=== PATIENT | female | born 1995 | race African-American/Black ===

== ENCOUNTER 2019-11-24 18:23 | Emergency (ER) | payer OTHER ==
[~2019-11-24] VITALS: Ht 157.5 cm; Wt 100.0 kg
[2019-11-24 19:07] VITALS: BP 137/75
[2019-11-24 19:53] LABS: BILIRUBIN,URINE NEGATIVE (NEG); CLARITY,URINE CLEAR; COLOR,URINE YELLOW; NITRITE,URINE NEGATIVE (NEG); PROTEIN,URINE NEGATIVE (NEG-TRACE)
--- NOTE | 2019-11-24 19:55 | PHYS DOC ---
Past Medical History Past Medical History: No Pertinent History Past Surgical History: Other Additional Past Surgical Histo: right knee Smoking Status: Never Smoker Alcohol Use: None Adult General Chief Complaint Chief Complaint: VAGINAL BLEEDING HPI HPI Patient is a 24 year old female who presents with 2 months . [place]. Patient states she does have a OB appointment with a Dr. Oconnor in [place] on . She stated that yesterday she began having vaginal bleeding and has gone through 2 pads today. Patient states she has slight cramping in her lower abdomen. Patient states her pain is a 3 out of 10. Review of Systems Review of Systems GI: intermittent cramping abdominal pain, denies nausea, vomiting, bloody stools or diarrhea [] : Vaginal bleeding. Denies dysuria or hematuria [] All other systems were reviewed and found to be within normal limits, except as documented in this note. Allergies Allergies Allergies Coded Allergies Type Severity Reaction Last Updated Verified No Known Drug Allergies 11/24/19 No Physical Exam Physical Exam Constitutional: Well developed, well nourished, no acute distress, non-toxic appearance. [] HENT: Normocephalic, atraumatic, bilateral external ears normal, oropharynx moist, no oral exudates, nose normal. [] Eyes: PERRLA, EOMI, conjunctiva normal, no discharge. [] Neck: Normal range of motion, no tenderness, supple, no stridor. [] Cardiovascular:Heart rate regular rhythm, no murmur [] Lungs & Thorax: Bilateral breath sounds clear to auscultation [] Abdomen: Bowel sounds normal, soft, no tenderness, no masses, no pulsatile masses. [] Skin: Warm, dry, no erythema, no rash. [] Back: No tenderness, no CVA tenderness. [] Extremities: No tenderness, no cyanosis, no clubbing, ROM intact, no edema. [] Neurologic: Alert and oriented X 3, normal motor function, normal sensory function, no focal deficits noted. [] Psychologic: Affect normal, judgement normal, mood normal. Normal Physical Exam[] Current Patient Data Vital Signs Vital Signs Date Time Temp Pulse Resp B/P (MAP) Pulse Ox O2 Delivery O2 Flow Rate FiO2 11/24/19 19:07 98.2 72 20 137/75 (95) 98 Room Air 98.2 Lab Values Laboratory Tests Test 11/24/19 19:05 11/24/19 19:12 11/24/19 20:25 Urine Collection Type Void Urine Color Yellow Urine Clarity Clear Urine pH 6.0 Urine Specific Holmen >=1.030 Urine Protein Negative mg/dL (NEG-TRACE) Urine Glucose (UA) Negative mg/dL (NEG) Urine Ketones (Stick) Negative mg/dL (NEG) Urine Blood Large (NEG) Urine Nitrite Negative (NEG) Urine Bilirubin Negative (NEG) Urine Urobilinogen Dipstick 1.0 mg/dL (0.2 mg/dL) Urine Leukocyte Esterase Negative (NEG) Urine RBC >40 /HPF (0-2) Urine WBC 1-4 /HPF (0-4) Urine Squamous Epithelial Cells Few /LPF Urine Bacteria Few /HPF (0-FEW) Urine Mucus Slight /LPF POC Urine HCG, Qualitative Hcg negative (Negative) White Blood Count 7.0 x10^3/uL (4.0-11.0) Red Blood Count 5.08 x10^6/uL (3.50-5.40) Hemoglobin 12.8 g/dL (12.0-15.5) Hematocrit 39.6 % (36.0-47.0) Mean Corpuscular Volume 78 fL (79-100) L Mean Corpuscular Hemoglobin 25 pg (25-35) Mean Corpuscular Hemoglobin Concent 32 g/dL (31-37) Red Cell Distribution Width 14.6 % (11.5-14.5) H Platelet Count 277 x10^3/uL (140-400) Neutrophils (%) (Auto) 53 % (31-73) Lymphocytes (%) (Auto) 35 % (24-48) Monocytes (%) (Auto) 6 % (0-9) Eosinophils (%) (Auto) 5 % (0-3) H Basophils (%) (Auto) 1 % (0-3) Neutrophils # (Auto) 3.7 x10^3/uL (1.8-7.7) Lymphocytes # (Auto) 2.4 x10^3/uL (1.0-4.8) Monocytes # (Auto) 0.4 x10^3/uL (0.0-1.1) Eosinophils # (Auto) 0.3 x10^3/uL (0.0-0.7) Basophils # (Auto) 0.1 x10^3/uL (0.0-0.2) Laboratory Tests 11/24/19 20:25 EKG EKG [] Radiology/Procedures Radiology/Procedures [] Impressions: [facility] [address] [place] [address] IMAGING REPORT Signed PATIENT: APRYL AVITIA ACCOUNT: [id number] : 1995 LOCATION: ER AGE: 24 SEX: F EXAM STATUS: REG ER ORD. PHYSICIAN: AMRO REYES APRN REASON: vaginal bleeding. 2 months post PROCEDURE: PELVIS W/TV Exam: Ultrasound pelvis Indication: Vaginal bleeding Technique: Real-time grayscale and color Doppler images of the pelvis were obtained by the department audiovisual tech. Comparisons: None FINDINGS: Uterus measures 8.6 x 5.7 x 4.4 cm. Endometrium is 9 mm in thickness. Right ovary measures 2.4 x 1.8 x 1.7 cm. Left ovary is not visualized, likely secondary to overlying bowel gas. There is trace free fluid. IMPRESSION: 1. Normal sonographic appearance of the uterus and right ovary. Left ovary is not visualized. 2. Small amount of free fluid in the pelvis. Electronically signed by: Felix Ruiz MD (11/24/2019 9:00 PM) [id number] DICTATED and SIGNED BY: FELIX RUIZ MD DATE: 11/24/192099 Course & Med Decision Making Course & Med Decision Making Pertinent Labs and Imaging studies reviewed. (See chart for details) Patient denies abnormal vaginal discharge, sexually transmitted diseases, dysuria symptoms, nausea, vomiting, diarrhea, constipation, fever, back pain chest pain, shortness of breath, weakness, dizziness, headache. Alert and oriented. Ambulatory with a steady gait. No extremity edema. No calf tenderness. Abdomen is soft and nontender. Vital signs within normal limits. Ambulatory with steady gait. Skin pink warm and dry. Patient has a appointment with her OB this coming in [place]. [] Dragon Disclaimer Dragon Disclaimer This electronic medical record was generated, in whole or in part, using a voice recognition dictation system. Departure Departure Impression: Primary Impression: bleeding Disposition: HOME, SELF-CARE Condition: STABLE Referrals: UNKNOWN PCP NAME (PCP) Patient Instructions: Dysmenorrhea, [id number] Additional Instructions: Keep your appointment with her OB doctor this week on . Take Ibuprofen for pain. Problem Qualifiers Primary Impression: bleeding hemorrhage type: unspecified Qualified Codes: O72.1 - Other immediate hemorrhage AMOR REYES APRN Nov 24, 2019 19:55
[2019-11-24 20:00] LABS: BACTERIA,URINE FEW /HPF (0-FEW); RBC,URINE >40 /HPF (0-2); SQUAMOUS EPITHELIAL CELL,UR FEW /LPF
[2019-11-24 20:34] LABS: BASO # 0.1 x10^3/uL (0.0-0.2); BASO % 1 % (0-3); EOS # 0.3 x10^3/uL (0.0-0.7); EOS % 5 % (0-3); HEMATOCRIT 39.6 % (36.0-47.0); HEMOGLOBIN 12.8 g/dL (12.0-15.5); LYMPH # 2.4 x10^3/uL (1.0-4.8); LYMPH % 35 % (24-48); MEAN CORPUSCULAR HEMOGLOBIN 25 pg (25-35); MEAN CORPUSCULAR HGB CONC 32 g/dL (31-37); MEAN CORPUSCULAR VOLUME 78 fL (79-100); MONO # 0.4 x10^3/uL (0.0-1.1); MONO % 6 % (0-9); NEUT # 3.7 x10^3/uL (1.8-7.7); NEUT % 53 % (31-73); PLATELET COUNT 277 x10^3/uL (140-400); RED BLOOD COUNT 5.08 x10^6/uL (3.50-5.40); RED CELL DISTRIBUTION WIDTH 14.6 % (11.5-14.5)
--- NOTE | 2019-11-24 21:03 | RAD ---
Exam: Ultrasound pelvis Indication: Vaginal bleeding Technique: Real-time grayscale and color Doppler images of the pelvis were obtained by the department knockout man. Comparisons: None FINDINGS: Uterus measures 8.6 x 5.7 x 4.4 cm. Endometrium is 9 mm in thickness. Right ovary measures 2.4 x 1.8 x 1.7 cm. Left ovary is not visualized, likely secondary to overlying bowel gas. There is trace free fluid. IMPRESSION: 1. Normal sonographic appearance of the uterus and right ovary. Left ovary is not visualized. 2. Small amount of free fluid in the pelvis. Electronically signed by: Kelsey Art MD (11/24/2019 9:00 PM) [id number]
[2019-11-24 21:16] LABS: CALCIUM 8.7 mg/dL (8.5-10.1); CREATININE 0.7 mg/dL (0.6-1.0); GFR 124.4; POTASSIUM 3.6 mmol/L (3.5-5.1)
[2019-11-24 21:21] LABS: ALBUMIN 3.4 g/dL (3.4-5.0); TOTAL BILIRUBIN 0.2 mg/dL (0.2-1.0); TOTAL PROTEIN 6.9 g/dL (6.4-8.2)
== END 2019-11-24 21:57 | disposition home or self-care (01) ==
LOC: ER 18:23
DX: N93.9 Abnormal uterine and vaginal bleeding, unspecified (principal); R10.30 Lower abdominal pain, unspecified
CPT/HCPCS: 36415; 76830; 76856; 80053; 81001; 81025; 85025; 99285-25